=== PATIENT | female | born 1995 | race Caucasian/White ===

== ENCOUNTER 2019-12-22 01:23 | Emergency (ER) | payer MEDICAID, SELFPAY ==
[2019-12-22 01:23] VITALS: BP 130/65; PULSE 78; RESP 15; TEMP 36.6; O2SAT 96; BMI 23.6
--- NOTE | 2019-12-22 01:39 | ED_ITS ---
Documented by User: BETTINA Hunter 12/24/19 07:14 HPI - Seizure General: Chief Complaint: Seizure Stated Complaint: SEIZURE Time Seen by Provider: 12/22/19 01:25 Source: patient, family and EMS Mode of arrival: EMS Limitations: no limitations History of Present Illness: HPI Narrative: Patient is a 24-year-old female who presents to ED today along with her family for complaints of a seizure. Family states patient was standing when she immediately went limp and fell to the ground and began having tonic-clonic movements. Seizure lasted approximately a minute. Mother tells me patient had 2 seizures approximately 4 years ago that were followed up with a neurologist at [facility]. They did not feel at the time patient had epilepsy and thought it was more related to stress. She was never placed on seizure medications and has not had a seizure over the past 4 years. Mother states child has been very stressed due to work, school, and a recent di vorce. She has not been sleeping well at night. Upon arrival patient seems drowsy. She complains of a headache and feeling cold. Seizure witness stated she did strike her head. She has not had any additional seizures. MD complaint: seizure Onset (ago): minute(s) Description of Episode: loss of consciousness and tonic-clonic movement -: minutes(s) (approximately 1 min) Witnessed: Yes - by Other (family) Trauma: Yes (reports striking her head) Seizure History: Yes Place: [facility] Precipitating Event: lack of sleep and stress Associated symptoms: Deny chest pain, chills, fever(s), malaise or syncope Review of Systems Const: Denies: fever, chills, body aches, change in appetite, change in weight, fatigue or malaise Eyes: Denies: change in vision or blurry vision ENMT: Denies: throat pain, enlarged tonsils or painful swallowing Card: Denies: chest pain, palpitations, irregular heart rhythm, edema, lightheadedness, syncope or pre-syncope Resp: Denies: shortness of breath, productive cough, coughing up blood or chest congestion GI: Denies: abdominal pain, nausea, vomiting or diarrhea : Denies: flank pain, difficulty urinating, painful urination, urinary frequency or urinary urgency Musc: Denies: neck pain or back pain Skin/Breast: Denies: rash Neuro: Reports: headache and other (seizure ); Denies: numbness in extremities, weakness in extremities or changes in sensation PFSH ED PFSH: Social History Smoking and tobacco status: former smoker Physical Exam Const: COMMON NORMALS: average body habitus, oriented x3, no limitations, healthy appearing, alert and well nourished OTHER: she complains of being cold and a RAMIRES HENMT: COMMON NORMALS: normocephalic, head/scalp atraumatic, hearing grossly normal bilaterally, external ears normal, EAC's normal, TM's normal bilaterally, external nose normal, nasal mucous membranes and turbinates normal, moist oral mucous membranes, oropharynx normal, dentition normal and gingiva normal HEAD & SCALP: normocephalic and atraumatic NOSE: external nose normal and nasal mucous membranes and turbinates normal EXTERNAL EAR: Yes external ears normal EXTERNAL AUDITORY CANAL: EAC's normal TYMPANIC MEMBRANE: TM's normal bi laterally MOUTH: other (no intraoral trauma) THROAT: posterior oropharynx normal, tonsils normal and uvula midline Eye: COMMON NORMALS: PERRL, EOMs intact bilaterally, conjunctivae normal and no scleral icterus CONJUNCTIVA: Yes conjunctivae normal PUPIL: Yes PERRL Neck/C-Spine: COMMON NORMALS: full ROM, no lymphadenopathy and no meningeal signs CERVICAL SPINE: Yes cervical ROM normal and No cervical spine tenderness Chest: COMMONS NORMALS: inspection of chest normal and palpation of chest normal Resp: COMMON NORMALS: normal respiratory effort and clear to auscultation bilaterally AUSCULTATION: clear to auscultation bilaterally Cardio: COMMON NORMALS: regular rate and regular rhythm RATE: regular rate RHYTHM: regular rhythm Neuro: COMMON NORMALS: oriented x3 SENSORIUM/ORIENTATION: Yes alert MENINGEAL SIGNS: Yes no meningeal signs Course Vital Signs: Vital signs: Vital Signs Temperature 97.8 F 12/22/19 01:23 Pulse Rate 88 12/22/19 04:45 Respiratory Rate 16 12/22/19 04:45 Blood Pressure 132/68 12/22/19 04:45 Pulse Oximetry 96 12/22/19 04:45 MDM - Seizure MDM Narrative: Medical decision making narrative: Dr. Meza will assume care and work on transferring patient to [place]. Lab Data: Labs: Lab Results 12/22/19 12/22/19 12/22/19 Range/Units 01:56 01:56 01:57 WBC (4.0-10.0) 10^3/ uL RBC (4.1-5.3) 10^6/u L Hgb (11.5-15.3) g/dL Hct (37.0-47.0) % MCV (81-99) fL MCH (28.0-34.0) pg MCHC (30.0-36.0) g/dL RDW (12.1-15.1) % Plt Count (130-400) 10^3/c mm MPV (7.4-10.4) fL Neut % (Auto) % Lymph % (Auto) % [place] % (Auto) % Eos % (Auto) % Baso % (Auto) % Neut # (Auto) (1.8-7.7) 10^3/u L Lymph # (Auto) (0.8-4.8) 10^3/u L [place] # (Auto) (0.2-0.9) 10^3/u L Eos # (Auto) (0.0-0.8) 10^3/u L Baso # (Auto) (0.0-0.1) 10^3/u L Nucleated RBC % (a uto) % Nucleated RBCs # /100WBC Sodium 141 (136-145) mmol/L Potassium 3.6 (3.5-5.1) mmol/L Chloride 102 (98-107) mmol/L Carbon Dioxide 27 (22-29) mmol/L Anion Gap 15.6 (5-19) BUN 19 (6-20) mg/dL Creatinine 0.9 (0.5-0.9) mg/dL GFR Calculation 78.3 L (90-130) mL/min Glucose 133 H (65-115) mg/dL Calculated Osmolal ity 290 (285-295) mOsm/k g Calcium 9.5 (8.5-10.5) mg/dL Total Bilirubin 0.2 (0.15-1.2) mg/dL AST 31 (0-32) U/L ALT 19 (0-33) U/L Alkaline Phosphata se 52 (35-105) IU/L Total Protein 7.7 (6.6-8.7) g/dL Albumin 4.1 (3.5-5.2) g/dL Globulin 3.6 (1.3-4.6) g/dL HCG, Qual (Negative) Urine Color Yellow (Yellow) Urine Appearance Hazy A (CLEAR) Urine pH 6 (5-7) Ur Specific Gravit y 1.020 (1.005-1.030) Urine Protein Neg (Negative) Urine Glucose (UA) Norm (Normal) Urine Ketones Negative (Negative) Urine Blood Neg (Negative) Urine Nitrate Negative (Negative) Urine Bilirubin Neg (NEGATIVE) Urine Urobilinogen Norm (Negative) mg/dL Ur Leukocyte Nelli ase Negative (Negative) Urine RBC 0-4 H (0-2) /hpf Urine WBC 0-4 H (0-5) /hpf Ur Squamous Epith Cells 10-15 H (0-5) Urine Bacteria 3+ H (NONE) Salicylates 0.7 L (3-10) mg/dL Urine Opiates Scre en Negative (Negative) ng/mL Acetaminophen < 5.0 L (10-30) ug/mL Ur Barbiturates Sc reen Negative (Negative) ng/mL Ur Phencyclidine S crn Negative (Negative) ng/mL Ur Amphetamines Sc reen Negative (Negative) ng/mL U Benzodiazepines Scrn Negative (Negative) ng/mL Urine Cocaine Scre en Negative (Negative) ng/mL U Marijuana (THC) Screen Negative (Negative) ng/mL 12/22/19 12/22/19 Range/Units 01:57 01:57 WBC 9.5 (4.0-10.0) 10^3/ uL RBC 4.97 (4.1-5.3) 10^6/u L Hgb 13.6 (11.5-15.3) g/dL Hct 42.9 (37.0-47.0) % MCV 86.3 (81-99) fL MCH 27.4 L (28.0-34.0) pg MCHC 31.7 (30.0-36.0) g/dL RDW 12.2 (12.1-15.1) % Plt Count 255 (130-400) 10^3/c mm MPV 9.7 (7.4-10.4) fL Neut % (Auto) 67.8 % Lymph % (Auto) 25.4 % [place] % (Auto) 5.8 % Eos % (Auto) 0.3 % Baso % (Auto) 0.4 % Neut # (Auto) 6.5 (1.8-7.7) 10^3/u L Lymph # (Auto) 2.4 (0.8-4.8) 10^3/u L [place] # (Auto) 0.6 (0.2-0.9) 10^3/u L Eos # (Auto) 0.0 (0.0-0.8) 10^3/u L Baso # (Auto) 0.0 (0.0-0.1) 10^3/u L Nucleated RBC % (a uto) 0 % Nucleated RBCs # 0.0 /100WBC Sodium (136-145) mmol/L Potassium (3.5-5.1) mmol/L Chloride (98-107) mmol/L Carbon Dioxide (22-29) mmol/L Anion Gap (5-19) BUN (6-20) mg/dL Creatinine (0.5-0.9) mg/dL GFR Calculation (90-130) mL/min Glucose (65-115) mg/dL Calculated Osmolal ity (285-295) mOsm/k g Calcium (8.5-10.5) mg/dL Total Bilirubin (0.15-1.2) mg/dL AST (0-32) U/L ALT (0-33) U/L Alkaline Phosphata se (35-105) IU/L Total Protein (6.6-8.7) g/dL Albumin (3.5-5.2) g/dL Globulin (1.3-4.6) g/dL HCG, Qual Negative (Negative) Urine Color (Yellow) Urine Appearance (CLEAR) Urine pH (5-7) Ur Specific Gravit y (1.005-1.030) Urine Protein (Negative) Urine Glucose (UA) (Normal) Urine Ketones (Negative) Urine Blood (Negative) Urine Nitrate (Negative) Urine Bilirubin (NEGATIVE) Urine Urobilinogen (Negative) mg/dL Ur Leukocyte Nelli ase (Negative) Urine RBC (0-2) /hpf Urine WBC (0-5) /hpf Ur Squamous Epith Cells (0-5) Urine Bacteria (NONE) Salicylates (3-10) mg/dL Urine Opiates Scre en (Negative) ng/mL Acetaminophen (10-30) ug/mL Ur Barbiturates Sc reen (Negative) ng/mL Ur Phencyclidine S crn (Negative) ng/mL Ur Amphetamines Sc reen (Negative) ng/mL U Benzodiazepines Scrn (Negative) ng/mL Urine Cocaine Scre en (Negative) ng/mL U Marijuana (THC) Screen (Negative) ng/mL Imaging Data^: CT Head: Radiologist's impression: [place] [address] CT Scan Report Signed Patient: Juliana Suarez Unit #: [id number] : 1995 Age/Sex: 24 / F ADM Date: 12/22/19 Loc: ER Room/Bed: Attending Dr: Ordering Provider/Ordering MD: Dalia Javier Date of Service: 12/22/19 Procedure(s): CT head wo con* [id number] Accession Number(s): [id number] Report Number: [id number] PROCEDURE INFORMATION: Exam: CT Head Without Contrast Exam date and time: 12/22/2019 1:39 AM Age: 24 years old Clinical indication: Pain and condition or disease; Other: Arachnoid cyst; Other: Seizure; Headache not specified; Additional info: Seizure/struck head/ramires TECHNIQUE: Imaging protocol: Computed tomography of the head without contrast. Total DLP: 814.12 mGy-cm Radiation optimization: All CT scans at this facility use at least one of these dose optimization techniques: automated exposure control; mA and/or kV adjustment per patient size (includes targeted exams where dose is matched to clinical indication); or iterative reconstruction. COMPARISON: MRI Head w/wo* [id number] 08/09/2015 11:31 AM FINDINGS: Brain: Small focal area of acute extra-axial/subdural blood in the left frontal region, measuring only 3 mm in thickness, and about 15 mm in length. No significant mass effect or midline shift. No other definite acute intracranial hemorrhage. No definite acute infarct by CT. MRI could be more sensitive/specific for detection, as clinically directed. In the left lateral temporal/parietal to region, there is an area of CSF density measuring 21 x 6 x 20 mm. The appearance is compatible with an arachnoid cyst, and is similar to the comparison MRI exam. Ventricles: Ventricle size is normal for age. Bones/joints: No definite acute skull fracture. Sinuses: Included paranasal sinuses are essentially clear. Mastoid air cells: No significant acute finding. Soft tissues: Unremarkable. CT/CT head wo con* [id number] IMPRESSION: 1. Small focal subdural hematoma in the left frontal region, details above. 2. No significant mass effect or midline shift. 3. No definite acute infarct by CT, see above. 4. Small left-sided arachnoid cyst. 5. Other findings discussed above. Radiation Dose CTDIVOL = (mGy): DLP = 814.12 (mGy-cm) Dictated By: Jesús Tolliver MD Signed By: Jesús Tolliver MD Signed Date/Time: 12/22/19299 DD/ 8 Discharge Plan Discharge Patient Disposition: Xfer Other Clinical Impression: Seizure, Acute subdural hematoma Condition: Stable Referrals: Bladimir Harrell DO [Family Provider] - Discharge Date/Time: 12/22/19 04:40 Coding Level of Care Code ED Fitness Specialist for Chg Fwd Exam Detailed Documented by User: Unique Meza MD 12/22/19 03:27 HPI - Seizure General: Chief Complaint: Seizure Stated Complaint: SEIZURE Time Seen by Provider: 12/22/19 01:25 PFS ED PFSH: Social History Smoking and tobacco status: former smoker Course Vital Signs: Vital signs: Vital Signs Temperature 97.8 F 12/22/19 01:23 Pulse Rate 88 12/22/19 04:45 Respiratory Rate 16 12/22/19 04:45 Blood Pressure 132/68 12/22/19 04:45 Pulse Oximetry 96 12/22/19 04:45 MDM - Seizure MDM Narrative: Medical decision making narrative: Patient presents here with a subdural hemorrhage after striking her head during a seizure. Subdural is very small and she has no changes to her GCS here. Spoke to [facility] and will transfer there for higher level of care as we do not have neurosurgery on-call. Patient has been stable while here. Lab Data: Labs: Lab Results 12/22/19 12/22/19 12/22/19 Range/Units 01:56 01:56 01:57 WBC (4.0-10.0) 10^3/ uL RBC (4.1-5.3) 10^6/u L Hgb (11.5-15.3) g/dL Hct (37.0-47.0) % MCV (81-99) fL MCH (28.0-34.0) pg MCHC (30.0-36.0) g/dL RDW (12.1-15.1) % Plt Count (130-400) 10^3/c mm MPV (7.4-10.4) fL Neut % (Auto) % Lymph % (Auto) % [place] % (Auto) % Eos % (Auto) % Baso % (Auto) % Neut # (Auto) (1.8-7.7) 10^3/u L Lymph # (Auto) (0.8-4.8) 10^3/u L [place] # (Auto) (0.2-0.9) 10^3/u L Eos # (Auto) (0.0-0.8) 10^3/u L Baso # (Auto) (0.0-0.1) 10^3/u L Nucleated RBC % (a uto) % Nucleated RBCs # /100WBC Sodium 141 (136-145) mmol/L Potassium 3.6 (3.5-5.1) mmol/L Chloride 102 (98-107) mmol/L Carbon Dioxide 27 (22-29) mmol/L Anion Gap 15.6 (5-19) BUN 19 (6-20) mg/dL Creatinine 0.9 (0.5-0.9) mg/dL GFR Calculation 78.3 L (90-130) mL/min Glucose 133 H (65-115) mg/dL Calculated Osmolal ity 290 (285-295) mOsm/k g Calcium 9.5 (8.5-10.5) mg/dL Total Bilirubin 0.2 (0.15-1.2) mg/dL AST 31 (0-32) U/L ALT 19 (0-33) U/L Alkaline Phosphata se 52 (35-105) IU/L Total Protein 7.7 (6.6-8.7) g/dL Albumin 4.1 (3.5-5.2) g/dL Globulin 3.6 (1.3-4.6) g/dL HCG, Qual (Negative) Urine Color Yellow (Yellow) Urine Appearance Hazy A (CLEAR) Urine pH 6 (5-7) Ur Specific Gravit y 1.020 (1.005-1.030) Urine Protein Neg (Negative) Urine Glucose (UA) Norm (Normal) Urine Ketones Negative (Negative) Urine Blood Neg (Negative) Urine Nitrate Negative (Negative) Urine Bilirubin Neg (NEGATIVE) Urine Urobilinogen Norm (Negative) mg/dL Ur Leukocyte Nelli ase Negative (Negative) Urine RBC 0-4 H (0-2) /hpf Urine WBC 0-4 H (0-5) /hpf Ur Squamous Epith Cells 10-15 H (0-5) Urine Bacteria 3+ H (NONE) Salicylates 0.7 L (3-10) mg/dL Urine Opiates Scre en Negative (Negative) ng/mL Acetaminophen < 5.0 L (10-30) ug/mL Ur Barbiturates Sc reen Negative (Negative) ng/mL Ur Phencyclidine S crn Negative (Negative) ng/mL Ur Amphetamines Sc reen Negative (Negative) ng/mL U Benzodiazepines Scrn Negative (Negative) ng/mL Urine Cocaine Scre en Negative (Negative) ng/mL U Marijuana (THC) Screen Negative (Negative) ng/mL 12/22/19 12/22/19 Range/Units 01:57 01:57 WBC 9.5 (4.0-10.0) 10^3/ uL RBC 4.97 (4.1-5.3) 10^6/u L Hgb 13.6 (11.5-15.3) g/dL Hct 42.9 (37.0-47.0) % MCV 86.3 (81-99) fL MCH 27.4 L (28.0-34.0) pg MCHC 31.7 (30.0-36.0) g/dL RDW 12.2 (12.1-15.1) % Plt Count 255 (130-400) 10^3/c mm MPV 9.7 (7.4-10.4) fL Neut % (Auto) 67.8 % Lymph % (Auto) 25.4 % [place] % (Auto) 5.8 % Eos % (Auto) 0.3 % Baso % (Auto) 0.4 % Neut # (Auto) 6.5 (1.8-7.7) 10^3/u L Lymph # (Auto) 2.4 (0.8-4.8) 10^3/u L [place] # (Auto) 0.6 (0.2-0.9) 10^3/u L Eos # (Auto) 0.0 (0.0-0.8) 10^3/u L Baso # (Auto) 0.0 (0.0-0.1) 10^3/u L Nucleated RBC % (a uto) 0 % Nucleated RBCs # 0.0 /100WBC Sodium (136-145) mmol/L Potassium (3.5-5.1) mmol/L Chloride (98-107) mmol/L Carbon Dioxide (22-29) mmol/L Anion Gap (5-19) BUN (6-20) mg/dL Creatinine (0.5-0.9) mg/dL GFR Calculation (90-130) mL/min Glucose (65-115) mg/dL Calculated Osmolal ity (285-295) mOsm/k g Calcium (8.5-10.5) mg/dL Total Bilirubin (0.15-1.2) mg/dL AST (0-32) U/L ALT (0-33) U/L Alkaline Phosphata se (35-105) IU/L Total Protein (6.6-8.7) g/dL Albumin (3.5-5.2) g/dL Globulin (1.3-4.6) g/dL HCG, Qual Negative (Negative) Urine Color (Yellow) Urine Appearance (CLEAR) Urine pH (5-7) Ur Specific Gravit y (1.005-1.030) Urine Protein (Negative) Urine Glucose (UA) (Normal) Urine Ketones (Negative) Urine Blood (Negative) Urine Nitrate (Negative) Urine Bilirubin (NEGATIVE) Urine Urobilinogen (Negative) mg/dL Ur Leukocyte Nelli ase (Negative) Urine RBC (0-2) /hpf Urine WBC (0-5) /hpf Ur Squamous Epith Cells (0-5) Urine Bacteria (NONE) Salicylates (3-10) mg/dL Urine Opiates Scre en (Negative) ng/mL Acetaminophen (10-30) ug/mL Ur Barbiturates Sc reen (Negative) ng/mL Ur Phencyclidine S crn (Negative) ng/mL Ur Amphetamines Sc reen (Negative) ng/mL U Benzodiazepines Scrn (Negative) ng/mL Urine Cocaine Scre en (Negative) ng/mL U Marijuana (THC) Screen (Negative) ng/mL Discharge Plan Discharge Patient Disposition: Xfer Other Clinical Impression: Seizure, Acute subdural hematoma Condition: Stable Referrals: Bladimir Harrell DO [Family Provider] - Discharge Date/Time: 12/22/19 04:40 Coding Level of Care Code ED Fitness Specialist for Gustavo Fwnabeel Exam Detailed
[2019-12-22 02:06] LABS: Basophils % 0.4 %; Eosinophils % 0.3 %; Hematocrit 42.9 % (37.0-47.0); Hemoglobin 13.6 g/dL (11.5-15.3); Lymphocytes # 2.4 10^3/uL (0.8-4.8); Lymphocytes % 25.4 %; Mean Corpuscular HGB Conc 31.7 g/dL (30.0-36.0); Mean Corpuscular Hemoglobin 27.4 pg (28.0-34.0); Mean Corpuscular Volume 86.3 fL (81-99); Mean Platelet Volume 9.7 fL (7.4-10.4); Monocytes # 0.6 10^3/uL (0.2-0.9); Monocytes % 5.8 %; Neutrophils # 6.5 10^3/uL (1.8-7.7); Neutrophils % 67.8 %; Nucleated Red Blood Cells % 0 %; Platelet Count 255 10^3/cmm (130-400); Red Blood Count 4.97 10^6/uL (4.1-5.3); Red Cell Distribution Width 12.2 % (12.1-15.1); White Blood Count 9.5 10^3/uL (4.0-10.0)
[2019-12-22] MEDS: ondansetron 2 mg/ML SDV 2 mL 4 MG IVP ×2 (02:07→03:57)
[2019-12-22] MEDS: sodium chloride 0.9% 1,000 ML 999 ML IV (02:07)
[2019-12-22 02:21] LABS: Alanine Aminotransferase 19 U/L (0-33); Albumin Level 4.1 g/dL (3.5-5.2); Alkaline Phosphatase 52 IU/L (35-105); Anion Gap 15.6 (5-19); Aspartate Amino Transferase 31 U/L (0-32); Blood Urea Nitrogen 19 mg/dL (6-20); Calcium 9.5 mg/dL (8.5-10.5); Carbon Dioxide 27 mmol/L (22-29); Chloride 102 mmol/L (98-107); Globulin 3.6 g/dL (1.3-4.6); Glomerular Filtration Rate 78.3 mL/min (90-130); Glucose 133 mg/dL (65-115); Osmolality Calculated 290 mOsm/kg (285-295); Potassium 3.6 mmol/L (3.5-5.1); Salicylate 0.7 mg/dL (3-10); Sodium 141 mmol/L (136-145); Total Bilirubin 0.2 mg/dL (0.15-1.2); Total Protein 7.7 g/dL (6.6-8.7)
[2019-12-22 02:22] LABS: Acetaminophen < 5.0 ug/mL (10-30)
[2019-12-22 02:28] LABS: Urine Appearance Hazy (CLEAR); Urine Color Yellow (Yellow); pH Urine 6 (5-7)
[2019-12-22 02:29] LABS: Add Urine Microscopic? YES; Bilirubin Urine Neg (NEGATIVE); Blood Urine Neg (Negative); Glucose Urine UA Norm (Normal); Ketones Urine Negative (Negative); Leukocyte Esterase Urine Negative (Negative); Nitrate Urine Negative (Negative); Protein Urine Neg (Negative); Urobilinogen Urine Norm (Negative)
[2019-12-22 02:30] LABS: HCG, Serum Qual Negative (Negative)
[2019-12-22 02:37] LABS: Amphetamines Screen Urine Negative (Negative); Barbiturates Screen Urine Negative (Negative); Benzodiazepines Screen Urine Negative (Negative); Cocaine Screen Urine Negative (Negative); Opiate Screen Urine Negative (Negative); PCP Screen Urine Negative (Negative); THC Screen Urine Negative (Negative)
[2019-12-22 02:39] LABS: Add Urine Culture? No; Bacteria Urine 3+; RBC Urine 0-4 /hpf (0-2); WBC Urine 0-4 /hpf (0-5)
[2019-12-22 02:44] VITALS: BP 114/62; PULSE 88; RESP 18; O2SAT 98
[2019-12-22 03:33] VITALS: BP 139/68; PULSE 89; RESP 18; O2SAT 97
[2019-12-22 04:06] VITALS: RESP 18; O2SAT 99
[2019-12-22] MEDS: morphine 4 mg/mL SDV 1 mL IVP (04:06)
[2019-12-22 04:20] VITALS: BP 133/66; PULSE 88; RESP 18; O2SAT 96
[2019-12-22 04:45] VITALS: BP 132/68; PULSE 88; RESP 16; O2SAT 96
--- NOTE | 2019-12-22 12:51 | DCPLANNER ---
manager employee relations had message to schedule a follow up appointment with a physician at [facility]. manager employee relations called [facility], was told that physician was no longer with the facility. manager employee relations called patient, spoke with patients father, and informed father that physician was no longer with the facility. manager employee relations was told that patient is admitted at a [facility] facility, that facility will handle follow up treatment, according to the father.
== END 2019-12-22 04:40 | disposition other institution (70) ==
PROVIDERS: Physician Assistant; Emergency Provider Emergency Medicine; Family Provider Family Medicine
DX: S06.5X9A Traumatic subdural hemorrhage with loss of consciousness of unspecified duration, initial encounter (principal); R56.9 Unspecified convulsions; Z87.891 Personal history of nicotine dependence; X58.XXXA Exposure to other specified factors, initial encounter; Y92.009 Unspecified place in unspecified non-institutional (private) residence as the place of occurrence of the external cause
CPT/HCPCS: 12345; 36415; 70450; 80053; 80307; 81001; 84703; 85025; 96360; 96361; 96374; 96375; 96376; 99284; 99285; J2270; J2405; J7030

== ENCOUNTER → 2020-04-13 15:35 | Outpatient (BNVA) | payer MEDICAID, SELFPAY | PROVIDERS: Family Provider Family Medicine; Visit Provider Nurse Practitioner Women's Health | DX: Z30.9 Encounter for contraceptive management, unspecified (principal); R56.9 Unspecified convulsions; Z30.09 Encounter for other general counseling and advice on contraception; Z30.41 Encounter for surveillance of contraceptive pills; N91.3 Primary oligomenorrhea | CPT/HCPCS: 88175 ==

== ENCOUNTER → 2020-04-16 10:12 | Outpatient (BNVA) | payer MEDICAID, SELFPAY | PROVIDERS: Family Provider Family Medicine; Visit Provider Nurse Practitioner Family | DX: N39.0 Urinary tract infection, site not specified (principal); F17.211 Nicotine dependence, cigarettes, in remission | CPT/HCPCS: 81000; 87086 ==

== ENCOUNTER 2020-04-26 11:36 | Emergency (ER) | payer MEDICAID, SELFPAY ==
[2020-04-26 11:41] VITALS: BMI 23.1
[2020-04-26 11:44] VITALS: BP 123/64; PULSE 53; RESP 16; TEMP 36.8; O2SAT 100
--- NOTE | 2020-04-26 11:49 | W.ED.HA ---
HPI - Headache General: Chief Complaint: Headache Stated Complaint: H/A Time Seen by Provider: 04/26/20 11:47 Source: patient and family History of Present Illness: HPI Narrative: 25-year-old female with migraine headache that started last night came on gradually. She was first diagnosed with a migraine in December of this year a couple weeks after having a seizure and being hospitalized at [facility] in [place]. She is on Trileptal for the seizures. She has an appointment coming up with her neurologist on May 17 because she is also been complaining of having some left arm tingling from the elbow down and in addition to that discuss her Trileptal dose. Mom is here helping to give history. She has not had any falls or injuries. Mom states that the only reason they can come up with for her having a seizure with stress and she did fall when she had her seizure back in December which is consistent with the finding of a small subdural hematoma at the time she was evaluated for that. States pain is dull above her right eye 7 out of 10. Admits to photo and phonophobia and mild nausea. No diarrhea no respiratory symptoms or fever. Associated symptoms: Reports nausea; Deny chest pain, fever(s), rash or vomiting Review of Systems General: Reports: 10 or more systems reviewed and unremarkable except in HPI and below Const: Denies: fever(s) or chills Eyes: Denies: change in vision ENMT: Denies: throat pain Card: Denies: chest pain Resp: Denies: dyspnea GI: Reports: nausea; Denies: abdominal pain, vomiting or change in bowel habits : Denies: difficulty voiding Musc: Denies: muscle weakness Skin/Breast: Denies: rash Neuro: Reports: headache(s) Psych: Denies: hopelessness or suicidal ideation Endo: Denies: polyuria Rohit/Lymph: Denies: easy bruising or easy bleeding All/Imm: Denies: urticaria PFSH ED PFSH: Medical History (Updated 04/26/20 @ 13:52 by Gem Garg MD) Seizure 12/2019; unsure if she has epilepsy Surgical History (Updated 04/13/20 @ 15:35 by Kajal Caballero APN, CONY) H/O knee surgery (~2012) right meniscal repair Family History Grandfather Hyperlipidemia Maternal grandfather Denies family history of Colon cancer Ovarian cancer Diabetes Heart disease Breast cancer Family history of thyroid problem Hypertension Uterine cancer Stroke Social History Smoking and tobacco status: former smoker Additional social history: - Tobacco use: Denies Alcohol use: Denies Drug use: Denies Female Reproductive History: Date of last menstrual period: 04/06/20 Physical Exam Const: COMMON NORMALS: no acute distress, patient oriented x3, alert and well nourished HENMT: COMMON NORMALS: normocephalic and Normal external nose present HEAD & SCALP: normocephalic NOSE: Normal external nose present MOUTH: no trismus Eye: COMMON NORMALS: EOMs intact bilaterally and conjunctivae normal CONJUNCTIVA: Yes conjunctivae normal Neck/C-Spine: COMMON NORMALS: full ROM, no lymphadenopathy and supple CERVICAL SPINE: Yes cervical ROM normal Lymph: LYMPHATIC: no lymphadenopathy noted Resp: COMMON NORMALS: normal respiratory effort, No retractions, No use of accessory muscles and clear to auscultation bilaterally EFFORT & INSPECTION: Yes able to speak in complete sentences AUSCULTATION: clear to auscultation bilaterally Cardio: COMMON NORMALS: regular rate and regular rhythm RATE: regular rate RHYTHM: regular rhythm GI: COMMON NORMALS: Normal to inspection, nondistended, normoactive bowel sounds present, Soft to palpation, non-tender and no masses INSPECTION: Yes normal to inspection AUSCULTATION: Yes normoactive bowel sounds PALPATION: Yes Soft to palpation, No Guarding due to palpation present (GI) and No Rigid due to palpation Back/Pelvis: OTHER: Normal range of motion Extremity: GENERAL: Yes normal exam except as noted Neuro: COMMON NORMALS: patient oriented x3 and CN's II-XII intact bilaterally SENSORIUM/ORIENTATION: Yes alert SPEECH: speech normal Psych: COMMON NORMALS: mental status grossly normal Skin: COMMON NORMALS: no rashes or lesions noted GENERAL SKIN EXAM: no rashes or lesions noted Course Vital Signs: Vital signs: Vital Signs Temperature 98.2 F 04/26/20 11:44 Pulse Rate 44 L 04/26/20 13:21 Respiratory Rate 16 04/26/20 13:21 Blood Pressure 113/61 04/26/20 13:21 Pulse Oximetry 96 04/26/20 13:21 MDM - Headache MDM Narrative: Medical decision making narrative: 1350 pain 2/10 after IV meds. ready to go home with mom Lab Data: Labs: Lab Results 04/26/20 04/26/20 Range/Units 11:57 11:57 WBC 5.5 (4.0-10.0) 10^3/ uL RBC 4.96 (4.1-5.3) 10^6/u L Hgb 13.3 (11.5-15.3) g/dL Hct 42.5 (37.0-47.0) % MCV 85.7 (81-99) fL MCH 26.8 L (28.0-34.0) pg MCHC 31.3 (30.0-36.0) g/dL RDW 12.6 (12.1-15.1) % Plt Count 261 (130-400) 10^3/c mm MPV 9.7 (7.4-10.4) fL Neut % (Auto) 62.9 % Lymph % (Auto) 27.0 % [place] % (Auto) 7.7 % Eos % (Auto) 1.5 % Baso % (Auto) 0.7 % Neut # (Auto) 3.43 (1.8-7.7) 10^3/u L Lymph # (Auto) 1.5 (0.8-4.8) 10^3/u L [place] # (Auto) 0.4 (0.2-0.9) 10^3/u L Eos # (Auto) 0.1 (0.0-0.8) 10^3/u L Baso # (Auto) 0.0 (0.0-0.1) 10^3/u L Nucleated RBC % (a uto) 0 % Nucleated RBCs # 0.0 /100WBC Sodium 138 (136-145) mmol/L Potassium 3.9 (3.5-5.1) mmol/L Chloride 102 (98-107) mmol/L Carbon Dioxide 27 (22-29) mmol/L Anion Gap 12.9 (5-19) BUN 13 (6-20) mg/dL Creatinine 0.7 (0.5-0.9) mg/dL GFR Calculation 103.7 (90-130) mL/min Glucose 93 (65-115) mg/dL Calculated Osmolal ity 282 L (285-295) mOsm/k g Calcium 8.5 (8.5-10.5) mg/dL Total Bilirubin 0.2 (0.15-1.2) mg/dL AST 18 (0-32) U/L ALT 13 (0-33) U/L Alkaline Phosphata se 52 (35-105) IU/L Total Protein 7.1 (6.6-8.7) g/dL Albumin 3.9 (3.5-5.2) g/dL Globulin 3.2 (1.3-4.6) g/dL Discharge Plan Discharge Patient Disposition: Home, Self-Care Clinical Impression: Migraine Qualifiers: Migraine type: unspecified Status migrainosus presence: without status migrainosus Intractability: not intractable Qualified Code(s): G43.909 - Migraine, unspecified, not intractable, without status migrainosus Condition: Stable Prescriptions: No Action oxcarbazepine 300 mg tablet 300 mg PO BID RF: 0 norgestimate-ethinyl estradiol [Sprintec (28)] 0.25-35 mg-mcg tablet 1 tab PO DAILY Qty: 84 RF: 3 Excedrin Migraine 250-250-65 mg Tablet 2 tab PO PRN RF: 0 Referrals: Wyatt Reyes MD [Primary Care Provider] - Patient Instructions: Migraine Headache (ED) Activity Restrictions/Additional Instructions: sleep and rest today. Keep appointment with neurologist in May. Coding Level of Care Code ED [employer] Thread Grinder Operator for Chg Fwd Exam Comprehensive
[2020-04-26 11:57] VITALS: BP 118/69; PULSE 52; RESP 16; O2SAT 97
[2020-04-26 12:08] LABS: Basophils % 0.7 %; Eosinophils # 0.1 10^3/uL (0.0-0.8); Eosinophils % 1.5 %; Hematocrit 42.5 % (37.0-47.0); Hemoglobin 13.3 g/dL (11.5-15.3); Lymphocytes # 1.5 10^3/uL (0.8-4.8); Mean Corpuscular HGB Conc 31.3 g/dL (30.0-36.0); Mean Corpuscular Hemoglobin 26.8 pg (28.0-34.0); Mean Corpuscular Volume 85.7 fL (81-99); Mean Platelet Volume 9.7 fL (7.4-10.4); Monocytes # 0.4 10^3/uL (0.2-0.9); Monocytes % 7.7 %; Neutrophils # 3.43 10^3/uL (1.8-7.7); Neutrophils % 62.9 %; Nucleated Red Blood Cells % 0 %; Platelet Count 261 10^3/cmm (130-400); Red Blood Count 4.96 10^6/uL (4.1-5.3); Red Cell Distribution Width 12.6 % (12.1-15.1); White Blood Count 5.5 10^3/uL (4.0-10.0)
[2020-04-26 12:21] LABS: Alanine Aminotransferase 13 U/L (0-33); Albumin Level 3.9 g/dL (3.5-5.2); Alkaline Phosphatase 52 IU/L (35-105); Anion Gap 12.9 (5-19); Aspartate Amino Transferase 18 U/L (0-32); Blood Urea Nitrogen 13 mg/dL (6-20); Calcium 8.5 mg/dL (8.5-10.5); Carbon Dioxide 27 mmol/L (22-29); Chloride 102 mmol/L (98-107); Globulin 3.2 g/dL (1.3-4.6); Glomerular Filtration Rate 103.7 mL/min (90-130); Glucose 93 mg/dL (65-115); Osmolality Calculated 282 mOsm/kg (285-295); Potassium 3.9 mmol/L (3.5-5.1); Sodium 138 mmol/L (136-145); Total Bilirubin 0.2 mg/dL (0.15-1.2); Total Protein 7.1 g/dL (6.6-8.7)
[2020-04-26 12:28] VITALS: RESP 18
[2020-04-26] MEDS: metoclopramide 5 mg/mL SDV 2 mL IVP (12:28)
[2020-04-26] MEDS: diphenhydrAMINE 50 mg/mL SDV 1mL 25 MG IVP (12:28)
[2020-04-26] MEDS: morphine 4 mg/mL SDV 1 mL IVP (12:28)
[2020-04-26 13:21] VITALS: BP 113/61; PULSE 44; RESP 16; O2SAT 96
[2020-04-26] MEDS: diphenhydrAMINE 50 mg/mL SDV 1mL 12.5 MG IVP (13:26)
[2020-04-26] MEDS: ketorolac 30 mg/mL INJ 15 MG IVP (13:26)
[2020-04-26 14:09] VITALS: BP 119/72; PULSE 64; RESP 16; O2SAT 96
== END 2020-04-26 14:10 | disposition home or self-care (01) ==
PROVIDERS: Emergency Provider Emergency Medicine; PCP Family Medicine
DX: G43.909 Migraine, unspecified, not intractable, without status migrainosus (principal); Z87.891 Personal history of nicotine dependence
CPT/HCPCS: 12345; 36415; 80053; 85025; 96374; 96375; 96376; 99283; J1200; J1885; J2270; J2765

== ENCOUNTER → 2020-08-20 15:47 | Outpatient (BNVA) | payer MEDICAID, SELFPAY | PROVIDERS: PCP Family Medicine; Visit Provider Emergency Medicine | DX: Z11.59 Encounter for screening for other viral diseases (principal) | CPT/HCPCS: 87635 ==